=== PATIENT | female | born 1940 | race Caucasian/White ===

== ENCOUNTER 2023-11-21 07:09 | Day surgery (SDC) | payer MEDICARE, MEDICAID ==
[2023-11-21] VITALS (13 sets, daily range): BP systolic 100–146; BP diastolic 52–97; PULSE 46–83; RESP 8–18; TEMP 97.5; O2SAT 96–100
[~2023-11-21] VITALS: Ht 165.1 cm; Wt 69.4 kg
[2023-11-21] MEDS ORDERED: atropine 0.1mg/ml 10ml syringe IV ONE (07:50)
[2023-11-21] MEDS ORDERED: diphenhydrAMINE 25mg capsule PO ONE (07:50)
[2023-11-21] MEDS ORDERED: LORazepam 0.5 MG tablet PO ONE (07:50)
[2023-11-21] MEDS ORDERED: amiodarone 150mg/dext, iso-os 100 ML IV ONE (07:50)
[2023-11-21] MEDS ORDERED: ALPR0.252 PO (07:51)
[2023-11-21] MEDS ORDERED: ATEN50TA8 PO (07:51)
[2023-11-21] MEDS ORDERED: SERT-434 PO (07:51)
[2023-11-21] MEDS ORDERED: ROSU10TA28 PO (07:51)
[2023-11-21] MEDS ORDERED: DRON400T7 PO (07:51)
[2023-11-21] MEDS ORDERED: AMLO5TAB16 PO (07:51)
[2023-11-21] MEDS ORDERED: HYDR25TA4 PO (07:51)
[2023-11-21] MEDS ORDERED: APIX5TAB3 PO (07:51)
[2023-11-21 08:15] LABS: BASOPHILS % (AUTO) 0.6 % (0-1); EOSINOPHILS # (AUTO) 0.1 X10'3 (0-0.9); EOSINOPHILS % (AUTO) 1.2 % (0-6); HEMATOCRIT 42.3 % (35.0-45.0); HEMOGLOBIN 14.2 g/dl (12.0-16.0); LYMPHOCYTES # (AUTO) 1.1 X10'3 (1.1-4.8); LYMPHOCYTES % (AUTO) 16.7 % (21-51); MEAN CORPUSCULAR HEMOGLOBIN 31.4 PG (27.0-31.0); MEAN CORPUSCULAR HGB CONC 33.7 g/dL (33.0-36.5); MEAN CORPUSCULAR VOLUME 93.3 FL (78-98); MEAN PLATELET VOLUME 9.4 FL (7.4-10.4); MONOCYTES # (AUTO) 0.5 X10'3 (0-0.9); MONOCYTES % (AUTO) 7.4 % (2-12); NEUTROPHILS % (AUTO) 74.1 % (42-75); PLATELET COUNT 166 X10'3 (140-440); RED BLOOD COUNT 4.53 X10'6 (4.20-5.60); RED CELL DISTRIBUTION WIDTH 14.4 % (11.5-14.5); WHITE BLOOD COUNT 6.7 X10'3 (4.5-11.0)
[2023-11-21 08:26] LABS: PROTHROMBIN TIME 11.1 SECONDS (9.0-12.0)
[2023-11-21 08:27] LABS: ALBUMIN 3.5 G/DL (3.4-5.0); ANION GAP 7 (8-16); BLOOD UREA NITROGEN 38 MG/DL (7-18); BUN/CREATININE RATIO 18.4 (10.0-20.0); CALCIUM 8.5 MG/DL (8.5-10.1); CHLORIDE 104 MMOL/L (99-107); CREATININE 2.06 MG/DL (0.40-0.90); GLUCOSE 95 MG/DL (70-104); POTASSIUM 3.7 MMOL/L (3.5-5.1); SODIUM 141 MMOL/L (135-145); TOTAL CARBON DIOXIDE 29.7 MMOL/L (24-32); eCRCL 18 ML/MIN; eGFR 23 ML/MIN
[2023-11-21] MEDS: morphine 10mg/ml inj. IV ONE (09:00)
[2023-11-21] MEDS: MIDAZolam 1mg/ml 10ml vial IV ONE (09:00)
[2023-11-21] MEDS: normal saline 1000ml 1,000 ML IV SCH (09:01)
[2023-11-21] MEDS: enoxaparin 40mg/0.4ml syringe SUBCUT STA (09:17)
[2023-11-21] MEDS: enoxaparin 30mg/0.3ml syringe IV STA (09:17)
== END 2023-11-21 10:50 | disposition home or self-care (01) ==
LOC: SSTAY O 07:09
PROVIDERS: ATTEND Internal Medicine Cardiovascular Disease
DX: I48.0 Paroxysmal atrial fibrillation (principal); F41.0 Panic disorder [episodic paroxysmal anxiety]; I10 Essential (primary) hypertension; E78.5 Hyperlipidemia, unspecified; I47.10 Supraventricular tachycardia, unspecified; I49.5 Sick sinus syndrome; Z88.8 Allergy status to other drugs, medicaments and biological substances; Z86.73 Personal history of transient ischemic attack (TIA), and cerebral infarction without residual deficits; Z79.899 Other long term (current) drug therapy; Z79.01 Long term (current) use of anticoagulants; Z98.890 Other specified postprocedural states; Z82.49 Family history of ischemic heart disease and other diseases of the circulatory system
CPT/HCPCS: 36415; 80048; 85025; 85610; 92960; 93005; J1650; J2250; J2274; J7030; A4620